=== PATIENT | male | born 1965 | race Caucasian/White ===

== ENCOUNTER 2018-07-20 10:10 | Emergency (ER) | payer OTHER, SELFPAY ==
[2018-07-20 10:11] VITALS: BP 140/81; PULSE 62; RESP 18; TEMP 36.1; O2SAT 99; BMI 25.4
--- NOTE | 2018-07-20 10:47 | ED.VISSUMM ---
- ER Visit Summary Date of Service: 07/20/18 Chief Complaint: Finger laceration History of Present Illness: The patient is a 52 M presenting for evaluation secondary to a finger laceration. Patient was washing dishes. He lacerated his right index finger. Tetanus status is around 9 years ago. Physical Examination: Examination of the patient's index finger shows a well approximated actually hard to delineate half centimeter triangular laceration over the pad of the patient's index finger with good hemostasis. Normal range of motion of the finger. Test Results: None indicated Emergency Department Course and Treatment: Patient's tetanus status was updated. Wound is already well approximated, and is not over the joint. Dermabond was placed over top of the wound. Dry dressing was placed, the patient will be placed in a AlumaFoam splint. He was recommended to wear that for 3-5 days. Disposition: Discharge Impression: 1. 0.5 cm right index finger laceration 2. Laceration repair This note was generated with [employer] dictation software. It may contain incorrect words, spelling, and punctuation that were not noted in review of the chart prior to signing ED Disposition - Plan for ED Patient: Disposition: Home or Assisted Living Chief Complaint: Laceration Diagnosis: Laceration of right index finger Instructions: ED Laceration Ext Skin Glue Referrals: Con Diamond DO [Primary Care Provider] - As Needed
--- NOTE | 2018-07-20 10:51 | ED.DCSUM_ITS ---
- ER Visit Summary Date of Service: 07/20/18 Chief Complaint: Finger laceration History of Present Illness: The patient is a 52 M presenting for evaluation secondary to a finger laceration. Patient was washing dishes. He lacerated his right index finger. Tetanus status is around 9 years ago. Physical Examination: Examination of the patient's index finger shows a well approximated actually hard to delineate half centimeter triangular laceration over the pad of the patient's index finger with good hemostasis. Normal range of motion of the finger. Test Results: None indicated Emergency Department Course and Treatment: Patient's tetanus status was updated. Wound is already well approximated, and is not over the joint. Dermabond was placed over top of the wound. Dry dressing was placed, the patient will be p laced in a AlumaFoam splint. He was recommended to wear that for 3-5 days. Disposition: Discharge Impression: 1. 0.5 cm right index finger laceration 2. Laceration repair This note was generated with [employer] dictation software. It may contain incorrect words, spelling, and punctuation that were not noted in review of the chart prior to signing ED Disposition - Plan for ED Patient: Disposition: Home or Assisted Living Chief Complaint: Laceration Diagnosis: Laceration of right index finger Instructions: ED Laceration Ext Skin Glue Referrals: Con Diamond DO [Primary Care Provider] - As Needed
[2018-07-20] MEDS: Diphth,Pertuss(Acell),Tet Vac 0.5 ML Vial IM (11:13)
== END 2018-07-20 11:38 | disposition home or self-care (01) ==
PROVIDERS: Emergency Provider Emergency Medicine; Family Provider Student in an Organized Health Care Education/Training Program; PCP Student in an Organized Health Care Education/Training Program
DX: S61.210A Laceration without foreign body of right index finger without damage to nail, initial encounter (principal); W45.8XXA Other foreign body or object entering through skin, initial encounter; Y93.G1 Activity, food preparation and clean up; Y92.9 Unspecified place or not applicable; Y99.9 Unspecified external cause status; Z23 Encounter for immunization
CPT/HCPCS: 12001; 90715; 99283